=== PATIENT | female | born 1945 | race Caucasian/White ===

== ENCOUNTER → 2016-10-31 | Outpatient (CLI) | payer MEDICARE, BC ==
--- NOTE | ~2016-10-31 | US5 ---
[facility] A Service of [facility] RADIOLOGY TEXT RESULTS PATIENT: SALLY LUND LOCATION: [facility] : 41 UNIT #: [id number] AGE: [address]: Fredy Son MD SEX: F ORDER DR: [id number] [facility] [address] [place], [place] [address] [id number] MR#: [id number] Acc #: [id number] NAME: SALLY LUND : 1945 SEX: F STUDY DATE/TIME: 10/31/2016 9:20 UNIT: [facility] ROOM: STUDY DESCRIPTION: US Abdominal Complete Attending Physician: Fredy Son III, M.D. Ordering Physician: Fredy Son III, M.D. Primary Care Physician: Sriram Toribio M.D. MEDICAL IMAGING REPORT This report is preliminary unless electronic signature is present EXAM Abdominal ultrasound INDICATIONS Cirrhosis. Observation for liver mass. PROCEDURE Muñoz-scale and Doppler imaging of the abdomen COMPARISON None FINDINGS Visualized portions of pancreas unremarkable. Coarsened hepatic echotexture. Liver measures 11.7 cm. No liver mass seen by ultrasound. Previous cholecystectomy. Common duct measures approximately 6-7 mm. Right kidney measures 9.7 cm. Submitted images abdominal aorta and vena cava unremarkable. Spleen measures 11.7 cm. Left kidney measures 9.8 cm. No hydronephrosis. IMPRESSION 1. Cirrhosis. No liver mass seen by ultrasound. 2. Spleen is normal in size. 3. Previous cholecystectomy. Dictated by... Brice Gill M.D. THIS IS AN ELECTRONICALLY VERIFIED REPORT Brice Gill M.D. at 11/01/2016 7:11 AM EED/claude TD: 10/31/2016 14:10 [facility] A Service [facility] RADIOLOGY TEXT RESULTS PATIENT: SALLY LUND LOCATION: [facility] : 41 UNIT #: [id number] AGE: [address]: Fredy Son MD SEX: F ORDER DR: JOB #: [id number] MEDICAL IMAGING REPORT Page 1 of 1 COPY
== END | disposition home or self-care (01) ==
LOC: CWCC 09:03
DX: K74.60 Unspecified cirrhosis of liver (principal); Z90.49 Acquired absence of other specified parts of digestive tract
CPT/HCPCS: 76700